=== PATIENT | male | born 1945 | race Caucasian/White ===

== ENCOUNTER 2019-05-29 17:44 | Inpatient (IN) | payer MEDICARE, MEDICAID ==
[2019-05-29] MEDS ORDERED: ASPIRIN 81 MG TABLET, CHEWABLE PO ONE (17:53)
[2019-05-29 18:00] LABS: ABSOLUTE BASOPHILS # (AUTO) 0.1 10^3/uL (0.0-0.2); ABSOLUTE EOSINOPHILS # (AUTO) 0.3 10^3/uL (0.0-0.6); ABSOLUTE MONOCYTES (AUTO) 0.7 10^3/uL (0.1-1.4); ABSOLUTE NEUT (AUTO) 9.9 10^3/uL (1.7-8.2); BASOPHILS % (AUTO) 0.6 % (0-2); EOSINOPHILS % (AUTO) 2.4 % (0-6); HEMATOCRIT 42.5 % (37.9-51.0); HEMOGLOBIN 14.2 g/dL (13.5-17.0); LYMPHOCYTES % (AUTO) 15.1 % (13-45); MEAN CORPUSCULAR HEMOGLOBIN 30.6 pg (27.0-33.4); MEAN CORPUSCULAR HGB CONC 33.5 g/dL (32.0-36.0); MEAN CORPUSCULAR VOLUME 92 fl (80-97); MONOCYTES % (AUTO) 5.7 % (3-13); PLATELET COUNT 205 10^3/uL (150-450); RED BLOOD COUNT 4.64 10^6/uL (4.35-5.55); RED CELL DISTRIBUTION WIDTH 14.8 % (11.5-14.0); SEGMENTED NEUTROPHILS % (AUTO) 76.2 % (42-78); TOTAL CELLS COUNTED % (AUTO) 100 %
[2019-05-29] MEDS ORDERED: NORMAL SALINE 1000 ML 1,000 ML IV ONE ×2 (18:09→21:09)
[2019-05-29 18:10] LABS: INTERNATIONAL RATION (INR) 1.05; PROTHROMBIN TIME 13.7 SEC (11.4-15.4)
[2019-05-29 18:17] LABS: ALANINE AMINOTRANSFERASE 14 U/L (21-72); ALKALINE PHOSPHATASE 141 U/L (38-126); ANION GAP 10 (5-19); ASPARTATE AMINO TRANSFERASE 17 U/L (17-59); BILIRUBIN,DIRECT 0.2 mg/dL (0.0-0.4); BILIRUBIN,TOTAL 1.1 mg/dL (0.2-1.3); BLOOD UREA NITROGEN 14 mg/dL (7-20); CALCIUM 9.2 mg/dL (8.4-10.2); CARBON DIOXIDE 25 mmol/L (22-30); CHLORIDE 105 mmol/L (98-107); CREATINE KINASE 29 U/L (55-170); GLUCOSE 111 mg/dL (75-110); POTASSIUM 4.1 mmol/L (3.6-5.0); SODIUM 139.8 mmol/L (137-145); TOTAL PROTEIN 7.6 g/dL (6.3-8.2)
--- NOTE | 2019-05-29 18:27 | RADIOLOGY REPORT (SQ) ---
EXAM DESCRIPTION: CHEST SINGLE VIEW COMPLETED DATE/TIME: 05/29/2019 6:03 pm REASON FOR STUDY: syncope COMPARISON: None. EXAM PARAMETERS: NUMBER OF VIEWS: One view. TECHNIQUE: Single frontal radiographic view of the chest acquired. RADIATION DOSE: NA LIMITATIONS: None. FINDINGS: LUNGS AND PLEURA: No pneumothorax. No consolidation or pleural effusion. Emphysema and le ft basilar scarring. MEDIASTINUM AND HILAR STRUCTURES: Age-appropriate. HEART AND VASCULAR STRUCTURES: Heart normal in size. BONES: No acute findings. HARDWARE: None in the chest. OTHER: No other significant finding. IMPRESSION: No consolidation or pleural effusion. Emphysema and left basilar scarring. TECHNICAL DOCUMENTATION: JOB ID: [id number] [place]-72 2010 [employer]- All Rights Reserved Reading location - IP/workstation name: [email or web address]
[2019-05-29 18:29] LABS: CREATINE KINASE MB 0.58 ng/mL (<4.55); TROPONIN I < 0.012 ng/mL
[2019-05-29 18:50] LABS: FREE T3 3.42 pg/mL (2.77-5.27); FREE T4 (FREE THYROXINE) 1.1 ng/dL (0.78-2.19)
--- NOTE | 2019-05-29 18:55 | RADIOLOGY REPORT (SQ) ---
EXAM DESCRIPTION: CT HEAD WITHOUT COMPLETED DATE/TIME: 05/29/2019 6:37 pm REASON FOR STUDY: fall COMPARISON: None. TECHNIQUE: Axial images acquired through the brain without intravenous contrast. Images reviewed wi th bone, brain and subdural windows. Additional sagittal and coronal reconstructions were generated. Images stored on PACS. All CT scanners at this facility use dose modulation, iterative reconstruction, and/or weight based d osing when appropriate to reduce radiation dose to as low as reasonably achievable (ALARA). [facility]: Dose Right [facility]: CareDose [facility]: Dose Right [facility]: Teradose 4D [facility]: Smart [employer] RADIATION DOSE: CT Rad equipment meets quality standard of care and radiation dose reduction techniq ues were employed. CTDIvol: 53.2 mGy. DLP: 1097 mGy-cm. mGy. LIMITATIONS: None. FINDINGS: VENTRICLES: Prominent ventricles secondary to involutional atrophy. No hemorrhage. CEREBRUM: No masses. No hemorrhage. No midline shift. No evidence for acute infarction. Normal gra y/white matter differentiation. No areas of low density in the white matter. CEREBELLUM: No masses. No hemorrhage. No alteration of density. No evidence for acute infarction. EXTRAAXIAL SPACES: 8 mm lentiform shaped hyperdense focus at the right frontal convexity (axial image 28). ORBITS AND GLOBE: No intra- or extraconal masses. Normal contour of globe without masses. CALVARIUM: No fracture. PARANASAL SINUSES: Air-fluid level and bubbly opacities within the right maxillary and left sphenoid sinuses. SOFT TISSUES: No mass or hematoma. OTHER: No other significant finding. IMPRESSION: POSSIBLE SMALL 8 MM FOCUS OF RIGHT FRONTAL CONVEXITY EXTRA-AXIAL HEMORRHAGE. NO CALVARI AL FRACTURE OR OTHER ACUTE INTRA CRANIAL FINDINGS. ACUTE RIGHT MAXILLARY AND LEFT SPHENOID SINUSITIS. COMMENT: Quality ID # [id number]: Final reports with documentation of one or more dose reduction techniques (e.g., Automated exposure control, adjustment of the mA and/or kV according to patient size, use of iterative reconstruction technique) TECHNICAL DOCUMENTATION: JOB ID: [id number]- All Rights Reserved Reading location - IP/workstation name: [email or web address]
--- NOTE | 2019-05-29 18:58 | RADIOLOGY REPORT (SQ) ---
EXAM DESCRIPTION: CT CERVICAL SPINE WITHOUT COMPLETED DATE/TIME: 05/29/2019 6:36 pm REASON FOR STUDY: fall COMPARISON: None. TECHNIQUE: Axial images acquired through the cervical spine without intravenous contrast. Images re viewed with lung, soft tissue and bone windows. Reconstructed coronal and sagittal MPR images review ed. Images stored on PACS. All CT scanners at this facility use dose modulation, iterative reconstruction, and/or weight based d osing when appropriate to reduce radiation dose to as low as reasonably achievable (ALARA). [facility]: Dose Right [facility]: CareDose [facility]: Dose Right [facility]: Teradose 4D [facility]: [employer] RADIATION DOSE: CT Rad equipment meets quality standard of care and radiation dose reduction techniq ues were employed. CTDIvol: 9.8 mGy. DLP: 172 mGy-cm. mGy. LIMITATIONS: None. FINDINGS: ALIGNMENT: Anatomic. MINERALIZATION: Normal. VERTEBRAL BODIES: No fractures or dislocation. DISCS: Multilevel disc space narrowing with osteophytes. FACETS, LATERAL MASSES, POSTERIOR ELEMENTS: Facet arthropathy. No fractures. No dislocation. No ac barrow findings. HARDWARE: Anterior plate and screw fixation from C4 through C6, intact. VISUALIZED RIBS: No fractures. LUNG APICES AND SOFT TISSUES: No significant or acute findings. OTHER: No other significant finding. IMPRESSION: CHRONIC DEGENERATIVE CHANGES. NO ACUTE FINDINGS. TECHNICAL DOCUMENTATION: JOB ID: [id number] [place]-72 Quality ID # [id number]: Final reports with documentation of one or more dose reduction techniques (e.g., Au tomated exposure control, adjustment of the mA and/or kV according to patient size, use of iterative reconstruction technique) 2010 [employer]- All Rights Reserved Reading location - IP/workstation name: [email or web address]
[2019-05-29 19:04] LABS: THYROID STIMULATING HORMONE 5.86 uIU/mL (0.47-4.68)
[2019-05-29] MEDS ORDERED: DILTIAZEM HCL/D5W 125 MG/125 ML RTUINJ IV PRN (19:44)
[2019-05-29] MEDS ORDERED: DILTIAZEM HCL INJ 25 MG/5 ML VIAL IV ONE (19:44)
[2019-05-29] MEDS ORDERED: MAG HYDROX/AL HYDROX/SIMETH SUSP 30 ML UDCUP PO PRN (20:54)
[2019-05-29] MEDS ORDERED: ACETAMINOPHEN 325 MG TABLET PO PRN (20:54)
[2019-05-29] MEDS ORDERED: IPRATROPIUM/ALBUTEROL 0.5-2.5 MG/3 ML AMPUL NEB PRN (20:54)
--- NOTE | 2019-05-29 20:54 | ER Document Report ---
ED General - General Chief Complaint: Syncope Stated Complaint: SYNCOPE Time Seen by Provider: 05/29/19 17:52 Mode of Arrival: Medic Information source: Patient, Emergency Med Personnel Notes: 73-year-old male with a history of dementia, COPD, sinus bradycardia presented via EMS from [facility] after a near syncopal event. Patient states that he was walking with his walker when he felt dizzy and was able to lower himself to the floor. He denies any loss of consciousness. He states that he did not hit his head and he remembers the entire event. Patient has no physical complaints, a GCS of 15 and no obvious signs of trauma. Patient's only medication is aspirin. Upon arrival patient was found to be in A. fib with RVR with a heart rate of 150. - HPI Onset: Just prior to arrival Onset/Duration: Sudden Quality of pain: No pain Severity: None Pain Level: Denies Associated symptoms: None. denies: Chest pain, Headache, Leg swelling, Nausea, Vomiting, Shortness of breath, Weakness Exacerbated by: Denies Relieved by: Denies Similar symptoms previously: No Recently seen / treated by doctor: No - Related Data Allergies/Adverse Reactions: No Known Allergies Allergy (Verified 05/29/19 18:16) Past Medical History - General Information source: Outside Facility Records - Social History Smoking Status: Current Every Day Smoker Cigarette use (# per day): Yes - 10 Smoking Education Provided: Yes - smoking cessation counseling was provided for 4 minutes at the bedside Frequency of alcohol use: None Drug Abuse: None Lives with: Shelter Family History: Reviewed & Not Pertinent Patient has suicidal ideation: No Patient has homicidal ideation: No Pulmonary Medical History: Reports: Hx COPD Renal/ Medical History: Denies: Hx Peritoneal Dialysis Review of Systems - Review of Systems Notes: REVIEW OF SYSTEMS: CONSTITUTIONAL : Denies fever, chills, or sweats. Denies recent illness. Denies weight loss, recent hospitalizations. EENT: Denies visual changes, eye pain. Denies sore throat, oral lesions, difficulty swallowing. CARDIOVASCULAR: Denies chest pain. Denies palpitations. Denies lower extremity edema. RESPIRATORY: Denies cough. Denies shortness of breath, wheezing. GASTROINTESTINAL: Denies abdominal pain or distention. Denies nausea, vomiting, or diarrhea. Denies blood in vomitus, stools, or per rectum. Denies black, tarry stools. Denies constipation. GENITOURINARY: Denies difficulty urinating, painful urination, frequency, blood in urine, testicular pain or penile discharge. MUSCULOSKELETAL: Denies back or neck pain or stiffness. Denies joint pain or swelling. SKIN: Denies rash, lesions or sores. HEMATOLOGIC : Denies easy bruising or bleeding. LYMPHATIC: Denies swollen glands. NEUROLOGICAL: Denies confusion or altered mental status. Denies loss of consciousness. Denies dizziness or lightheadedness. Denies headache. Denies weakness or paralysis. Denies problems difficulty with ambulation, slurred speech. Denies sensory loss, numbness, or tingling. Denies seizures. PSYCHIATRIC: Denies anxiety or stress. Denies depression, suicidal ideation, or Physical Exam - Vital signs Vitals: Resp Pulse Ox 21 H 96 05/29/19 17:51 05/29/19 17:51 - Notes Notes: PHYSICAL EXAMINATION: GENERAL: Well-appearing, well-nourished and in no acute distress. GCS 15 HEAD: Atraumatic, normocephalic. EYES: Pupils equal round and reactive to light, extraocular movements intact, sclera anicteric, conjunctiva are normal. ENT: Nares patent, oropharynx clear without exudates. Moist mucous membranes. No hemanotympanum . No blood in nares. No dental fracture NECK: Normal range of motion, supple without lymphadenopathy. Trachea midline LUNGS: Breath sounds clear to auscultation bilaterally and equal. No wheezes rales or rhonchi. HEART: Tachycardic, irregular rhythm. pulses intact all throughout. ABDOMEN: Soft, nontender, nondistended abdomen. No guarding, no rebound. No masses appreciated. Musculoskeletal: Normal range of motion, no pitting or edema. No cyanosis. Hip non tender, stable. NEUROLOGICAL: Cranial nerves grossly intact. Normal speech, normal gait. Normal sensory, motor, and reflex exams. PSYCH: Normal mood, normal affect. SKIN: Warm, No active bleeding Course - Re-evaluation Re-evalutation: Laboratory 05/29/19 05/29/19 05/29/19 17:51 17:51 17:51 WBC 13.0 H RBC 4.64 Hgb 14.2 Hct 42.5 MCV 92 MCH 30.6 MCHC 33.5 RDW 14.8 H Plt Count 205 Seg Neutrophils % 76.2 Lymphocytes % 15.1 Monocytes % 5.7 Eosinophils % 2.4 Basophils % 0.6 Absolute Neutrophils 9.9 H Absolute Lymphocytes 2.0 Absolute Monocytes 0.7 Absolute Eosinophils 0.3 Absolute Basophils 0.1 PT 13.7 INR 1.05 Sodium 139.8 Potassium 4.1 Chloride 105 Carbon Dioxide 25 Anion Gap 10 BUN 14 Creatinine 0.67 Est GFR ( Amer) > 60 Est GFR (Non-Af Amer) > 60 Glucose 111 H Calcium 9.2 Magnesium Total Bilirubin 1.1 Direct Bilirubin 0.2 Neonat Total Bilirubin Not Reportable Neonat Direct Bilirubin Not Reportable Neonat Indirect Bili Not Reportable AST 17 ALT 14 L Alkaline Phosphatase 141 H Creatine Kinase 29 L CK-MB (CK-2) Troponin I NT-Pro-B Natriuret Pep Total Protein 7.6 Albumin 4.0 TSH Free T4 Free T3 pg/mL 05/29/19 05/29/19 05/29/19 17:51 17:51 17:51 WBC RBC Hgb Hct MCV MCH MCHC RDW Plt Count Seg Neutrophils % Lymphocytes % Monocytes % Eosinophils % Basophils % Absolute Neutrophils Absolute Lymphocytes Absolute Monocytes Absolute Eosinophils Absolute Basophils PT INR Sodium Potassium Chloride Carbon Dioxide Anion Gap BUN Creatinine Est GFR ( Amer) Est GFR (Non-Af Amer) Glucose Calcium Magnesium 1.9 Total Bilirubin Direct Bilirubin Neonat Total Bilirubin Neonat Direct Bilirubin Neonat Indirect Bili AST ALT Alkaline Phosphatase Creatine Kinase CK-MB (CK-2) 0.58 Troponin I < 0.012 NT-Pro-B Natriuret Pep 395 Total Protein Albumin TSH Free T4 Free T3 pg/mL 05/29/19 17:51 WBC RBC Hgb Hct MCV MCH MCHC RDW Plt Count Seg Neutrophils % Lymphocytes % Monocytes % Eosinophils % Basophils % Absolute Neutrophils Absolute Lymphocytes Absolute Monocytes Absolute Eosinophils Absolute Basophils PT INR Sodium Potassium Chloride Carbon Dioxide Anion Gap BUN Creatinine Est GFR ( Amer) Est GFR (Non-Af Amer) Glucose Calcium Magnesium Total Bilirubin Direct Bilirubin Neonat Total Bilirubin Neonat Direct Bilirubin Neonat Indirect Bili AST ALT Alkaline Phosphatase Creatine Kinase CK-MB (CK-2) Troponin I NT-Pro-B Natriuret Pep Total Protein Albumin TSH 5.86 H Free T4 1.10 Free T3 pg/mL 3.42 Chest X-Ray 05/29/19 17:54 IMPRESSION: No consolidation or pleural effusion. Emphysema and left basilar scarring. Cervical Spine CT 05/29/19 18:10 IMPRESSION: CHRONIC DEGENERATIVE CHANGES. NO ACUTE FINDINGS. Head CT 05/29/19 18:10 IMPRESSION: POSSIBLE SMALL 8 MM FOCUS OF RIGHT FRONTAL CONVEXITY EXTRA-AXIAL HEMORRHAGE. NO CALVARIAL FRACTURE OR OTHER ACUTE INTRA CRANIAL FINDINGS. ACUTE RIGHT MAXILLARY AND LEFT SPHENOID SINUSITIS. Temp Pulse Resp BP Pulse Ox 97.1 F 20 142/62 H 96 05/29/19 17:53 05/29/19 20:51 05/29/19 20:51 05/29/19 20:51 73-year-old male with a history of dementia, COPD, sinus bradycardia presented via EMS from [facility] after a near syncopal event. Patient states that he was walking with his walker when he felt dizzy and was able to lower himself to the floor. He denies any loss of consciousness. He states that he did not hit his head. Patient has no physical complaints, a GCS of 15 and no obvious signs of trauma. Patient's only medication is aspirin. Upon arrival patient was found to be in A. fib with RVR with a heart rate of 150. Patient did receive IV fluids and a 15 mg bolus of Cardizem. Patient current heart rate is 58. No significant laboratory findings. 05/29/19 20:57 I did call [facility] radiology and spoke to to request a re-review of the patient's head CT that was initially read as a possible extra-axial hemorrhage because the patient has no evidence of head trauma and is not antic oagulated and states that he has not hit his head. He did review the films with me and stated that he believes this is purely artifact and has no suspicion that this is a bleed. Dr. Sales was contacted for admission and has accepted the patient to telemetry. - Vital Signs Vital signs: Temp Pulse Resp BP Pulse Ox 97.1 F 20 142/62 H 96 05/29/19 17:53 05/29/19 20:51 05/29/19 20:51 05/29/19 20:51 - Laboratory Result Diagrams: 05/29/19 17:51 05/29/19 17:51 Laboratory results interpreted by me: 05/29/19 05/29/19 05/29/19 17:51 17:51 17:51 WBC 13.0 H RDW 14.8 H Absolute Neutrophils 9.9 H Glucose 111 H ALT 14 L Alkaline Phosphatase 141 H Creatine Kinase 29 L TSH 5.86 H - Diagnostic Test Radiology reviewed: Image reviewed, Reports reviewed - EKG Interpretation by Me Rate: Tachycardia Rhythm: A.Fib When compared to previous EKG there are: Previous EKG unavailable Discharge - Discharge Clinical Impression: Near syncope, New onset atrial fibrillation, Atrial fibrillation with RVR COPD (chronic obstructive pulmonary disease) Qualifiers: COPD type: unspecified COPD Qualified Code(s): J44.9 - Chronic obstructive pulmonary disease, unspecified Hard of hearing Qualifiers: Hearing loss type: unspecified Laterality: bilateral Qualified Code(s): H91.93 - Unspecified hearing loss, bilateral Condition: Good Disposition: ADMITTED INPATIENT Admitting Provider: Henrry (Hospitalist) Unit Admitted: Telemetry
[2019-05-29] MEDS ORDERED: DILTIAZEM HCL 60 MG TABLET PO SCH (22:00)
[2019-05-29] MEDS: HEPARIN SOD (PORCINE) 5,000 UNIT/ML 1 ML SYRINGE SUBCUT SCH (23:46)
--- NOTE | 2019-05-29 23:50 | EKG REPORT ---
SEVERITY:- ABNORMAL ECG - SINUS RHYTHM BORDERLINE R WAVE PROGRESSION, ANTERIOR LEADS CONSIDER ANTEROSEPTAL INFARCT, OLD : Confirmed by: Carolyn Barba 29-May-2019 23:49:30
--- NOTE | 2019-05-29 23:50 | EKG REPORT ---
SEVERITY:- ABNORMAL ECG - ATRIAL FLUTTER CONSIDER LEFT VENTRICULAR HYPERTROPHY : Confirmed by: Carolyn Barba 29-May-2019 23:50:20
[2019-05-30 03:15] LABS: ABSOLUTE BASOPHILS # (AUTO) 0.1 10^3/uL (0.0-0.2); ABSOLUTE EOSINOPHILS # (AUTO) 0.1 10^3/uL (0.0-0.6); ABSOLUTE LYMPHOCYTES (AUTO) 1.6 10^3/uL (0.5-4.7); ABSOLUTE MONOCYTES (AUTO) 0.8 10^3/uL (0.1-1.4); ABSOLUTE NEUT (AUTO) 9.9 10^3/uL (1.7-8.2); BASOPHILS % (AUTO) 0.7 % (0-2); EOSINOPHILS % (AUTO) 0.7 % (0-6); HEMATOCRIT 37.8 % (37.9-51.0); HEMOGLOBIN 12.3 g/dL (13.5-17.0); LYMPHOCYTES % (AUTO) 12.7 % (13-45); MEAN CORPUSCULAR HEMOGLOBIN 30.2 pg (27.0-33.4); MEAN CORPUSCULAR HGB CONC 32.5 g/dL (32.0-36.0); MEAN CORPUSCULAR VOLUME 93 fl (80-97); MONOCYTES % (AUTO) 6.1 % (3-13); PLATELET COUNT 180 10^3/uL (150-450); RED BLOOD COUNT 4.07 10^6/uL (4.35-5.55); RED CELL DISTRIBUTION WIDTH 14.5 % (11.5-14.0); SEGMENTED NEUTROPHILS % (AUTO) 79.8 % (42-78); TOTAL CELLS COUNTED % (AUTO) 100 %; WHITE BLOOD COUNT 12.4 10^3/uL (4.0-10.5)
[2019-05-30 03:35] LABS: ANION GAP 9 (5-19); BLOOD UREA NITROGEN 12 mg/dL (7-20); CALCIUM 8.9 mg/dL (8.4-10.2); CARBON DIOXIDE 25 mmol/L (22-30); CHLORIDE 110 mmol/L (98-107); GLUCOSE 88 mg/dL (75-110); POTASSIUM 4.2 mmol/L (3.6-5.0); SODIUM 143.5 mmol/L (137-145)
--- NOTE | 2019-05-30 04:10 | PDOC H&P ---
History of Present Illness Admission Date/PCP: 05/29/19 20:54 Patient complains of: Lightheadedness History of Present Illness: JOE DIXON is a 73 year old male resident of the [facility], with a past medical history of dementia, COPD, sinus bradycardia and deafness. He presents 1 hour after a near syncopal event occurring while walking with his walker fee ling lightheaded he lowered himself to the ground with palpitations without chest pain nausea vomiting or loss of consciousness in the emergency room is found to be in a flutter with a heart rate in the 150s he receives IV Cardizem x1 resulting in sinus bradycardia and is referred to the hospitalist for admission. Patient is a poor historian he is unaware of recent change of medications and he otherwise feels well. Past Medical History Pulmonary Medical History: Reports: Chronic Obstructive Pulmonary Disease (COPD) Social History Information Source: Patient, [facility] Records Lives with: Long-Term Smoking Status: Current Every Day Smoker - Advance Directive Resuscitation Status: Full Code Family History Family History: Reviewed & Not Pertinent Parental Family History Reviewed: Yes Children Family History Reviewed: Yes Sibling(s) Family History Reviewed.: Yes Medication/Allergy Home Medications: Aspirin [Aspirin 81 mg Chewable Tablet] 81 mg PO DAILY 05/29/19 Allergies/Adverse Reactions: No Known Allergies Allergy (Verified 05/29/19 18:16) Review of Systems Constitutional: ABSENT: chills, fever(s), headache(s), weight gain, weight loss Eyes: ABSENT: visual disturbances Ears: ABSENT: hearing changes Cardiovascular: ABSENT: chest pain, dyspnea on exertion, edema, orthropnea, palpitations Respiratory: ABSENT: cough, hemoptysis Gastrointestinal: ABSENT: abdominal pain, constipation, diarrhea, hematemesis, hematochezia, nausea, vomiting Genitourinary: ABSENT: dysuria, hematuria Musculoskeletal: ABSENT: joint swelling Integumentary: ABSENT: rash, wounds Neurological: ABSENT: abnormal gait, abnormal speech, confusion, dizziness, focal weakness, syncope Psychiatric: ABSENT: anxiety, depression, homidical ideation, suicidal ideation Endocrine: ABSENT: cold intolerance, heat intolerance, polydipsia, polyuria Hematologic/Lymphatic: ABSENT: easy bleeding, easy bruising Physical Exam Vital Signs: Temp Pulse Resp BP Pulse Ox 98.1 F 59 L 16 123/61 98 05/30/19 03:03 05/30/19 03:03 05/30/19 03:03 05/30/19 03:03 05/30/19 03:03 Intake & Output 05/28/19 05/29/19 05/30/19 11:59 11:59 11:59 Intake Total 2000 Output Total 400 Balance 1600 Weight 52.9 kg General appearance: PRESENT: no acute distress, well-developed, well-nourished Head exam: PRESENT: atraumatic, normocephalic Eye exam: PRESENT: conjunctiva pink, EOMI, PERRLA. ABSENT: scleral icterus Ear exam: PRESENT: normal external ear exam Mouth exam: PRESENT: moist, tongue midline Neck exam: ABSENT: carotid bruit, JVD, lymphadenopathy, thyromegaly Respiratory exam: PRESENT: clear to auscultation kristopher. ABSENT: rales, rhonchi, wheezes Cardiovascular exam: PRESENT: RRR. ABSENT: diastolic murmur, rubs, systolic murmur Pulses: PRESENT: normal dorsalis pedis pul Vascular exam: PRESENT: normal capillary refill GI/Abdominal exam: PRESENT: normal bowel sounds, soft. ABSENT: distended, guarding, mass, organolmegaly, rebound, tenderness Rectal exam: PRESENT: deferred Extremities exam: PRESENT: full ROM. ABSENT: calf tenderness, clubbing, pedal edema Neurological exam: PRESENT: alert, awake, oriented to person, oriented to place, oriented to time, oriented to situation, CN II-XII grossly intact. ABSENT: motor sensory deficit Psychiatric exam: PRESENT: appropriate affect, normal mood. ABSENT: homicidal ideation, suicidal ideation Skin exam: PRESENT: dry, intact, warm. ABSENT: cyanosis, rash Results Laboratory Results: 05/30/19 03:09 05/30/19 03:09 05/29/19 05/29/19 05/29/19 17:51 17:51 17:51 WBC 13.0 H RBC 4.64 Hgb 14.2 Hct 42.5 MCV 92 MCH 30.6 MCHC 33.5 RDW 14.8 H Plt Count 205 Seg Neutrophils % 76.2 Lymphocytes % 15.1 Monocytes % 5.7 Eosinophils % 2.4 Basophils % 0.6 Absolute Neutrophils 9.9 H Absolute Lymphocytes 2.0 Absolute Monocytes 0.7 Absolute Eosinophils 0.3 Absolute Basophils 0.1 Sodium 139.8 Potassium 4.1 Chloride 105 Carbon Dioxide 25 Anion Gap 10 BUN 14 Creatinine 0.67 Est GFR ( Amer) > 60 Est GFR (Non-Af Amer) > 60 Glucose 111 H Calcium 9.2 Magnesium 1.9 Total Bilirubin 1.1 AST 17 ALT 14 L Alkaline Phosphatase 141 H Total Protein 7.6 Albumin 4.0 TSH Free T4 Free T3 pg/mL 05/29/19 05/30/19 05/30/19 17:51 03:09 03:09 WBC 12.4 H RBC 4.07 L Hgb 12.3 L Hct 37.8 L MCV 93 MCH 30.2 MCHC 32.5 RDW 14.5 H Plt Count 180 Seg Neutrophils % 79.8 H Lymphocytes % 12.7 L Monocytes % 6.1 Eosinophils % 0.7 Basophils % 0.7 Absolute Neutrophils 9.9 H Absolute Lymphocytes 1.6 Absolute Monocytes 0.8 Absolute Eosinophils 0.1 Absolute Basophils 0.1 Sodium 143.5 Potassium 4.2 Chloride 110 H Carbon Dioxide 25 Anion Gap 9 BUN 12 Creatinine 0.64 Est GFR ( Amer) > 60 Est GFR (Non-Af Amer) > 60 Glucose 88 Calcium 8.9 Magnesium Total Bilirubin AST ALT Alkaline Phosphatase Total Protein Albumin TSH 5.86 H Free T4 1.10 Free T3 pg/mL 3.42 05/29/19 05/29/19 05/29/19 17:51 17:51 17:51 Creatine Kinase 29 L CK-MB (CK-2) 0.58 Troponin I < 0.012 NT-Pro-B Natriuret Pep 395 05/29/19 05/30/19 20:45 03:09 Creatine Kinase CK-MB (CK-2) Troponin I < 0.012 0.083 NT-Pro-B Natriuret Pep Impressions: Chest X-Ray 05/29/19 17:54 IMPRESSION: No consolidation or pleural effusion. Emphysema and left basilar scarring. Cervical Spine CT 05/29/19 18:10 IMPRESSION: CHRONIC DEGENERATIVE CHANGES. NO ACUTE FINDINGS. Head CT 05/29/19 18:10 IMPRESSION: POSSIBLE SMALL 8 MM FOCUS OF RIGHT FRONTAL CONVEXITY EXTRA-AXIAL HEMORRHAGE. NO CALVARIAL FRACTURE OR OTHER ACUTE INTRA CRANIAL FINDINGS. ACUTE RIGHT MAXILLARY AND LEFT SPHENOID SINUSITIS. Assessment and Plan - Diagnosis (1) Atrial fibrillation with RVR Is this a current diagnosis for this admission?: Yes Plan: Telemetry admission. Not requiring rate limiting agent as he is in sinus bradycardia. Follow-up orthostatic blood pressures, 2D echo, TSH and cardiac enzymes (2) Near syncope Is this a current diagnosis for this admission?: Yes Plan: Secondary to #1, follow-up orthostatic blood pressures (3) Hard of hearing Qualifiers: Hearing loss type: unspecified Laterality: bilateral Qualified Code(s): H91.93 - Unspecified hearing loss, bilateral Is this a current diagnosis for this admission?: Yes Plan: Supportive care - Time Time Spent with patient: 25-34 minutes - Inpatient Certification Medical Necessity: Need Close Monitoring Due to Risk of Patient Decompensation
[2019-05-30] MEDS: HEPARIN SOD (PORCINE) 5,000 UNIT/ML 1 ML SYRINGE SUBCUT SCH ×3 (06:02→22:46)
[2019-05-30] MEDS: DOCUSATE SODIUM 100 MG CAPSULE PO SCH ×2 (09:20→17:21)
[2019-05-30] MEDS: ASPIRIN 81 MG TABLET, CHEWABLE PO SCH (09:20)
--- NOTE | 2019-05-30 15:27 | PDOC PROGRESS REPORT ---
Subjective Progress Note for:: 05/30/19 Subjective:: This is a 73 yr old male from [facility]) with a PMH of dementia, COPD, and hearing problem (not able to afford hearing aids) who was brought in due to near syncopal episode and lightheadedness. In the ER, patient was noted to be in atrial flutter with a heart rate in the 150s. He was given a bolus of IV Cardizem in went into sinus bradycardia. Upon encounter, patient is comfortable. He denies chest pain or shortness of breath. He has extreme hearing difficulty and communication is done through writing. Patient complains of feeling dizzy every time he gets up and right that has been going on for a week or so. He still gets dizziness this morning when he tried to stand up. Blood pressures this morning were orthostatic. brand planner shows sinus bradycardia with a heart rate of 46. Reason For Visit: PRESYNCOPE AFIB Physical Exam Vital Signs: Temp Pulse Resp BP Pulse Ox 98.1 F 53 L 16 117/47 L 99 05/30/19 12:35 05/30/19 12:35 05/30/19 12:35 05/30/19 12:35 05/30/19 12:35 Intake & Output 05/29/19 05/30/19 05/31/19 06:59 06:59 06:59 Intake Total 2000 Output Total 700 Balance 1300 Weight 116 lb 13.52 oz General appearance: PRESENT: no acute distress, well-developed, well-nourished Head exam: PRESENT: atraumatic, normocephalic Eye exam: PRESENT: conjunctiva pink, EOMI, PERRLA. ABSENT: scleral icterus Ear exam: PRESENT: normal external ear exam Mouth exam: PRESENT: moist, tongue midline Neck exam: ABSENT: carotid bruit, JVD, lymphadenopathy, thyromegaly Respiratory exam: PRESENT: clear to auscultation kristopher. ABSENT: rales, rhonchi, wheezes Cardiovascular exam: PRESENT: bradycardia, RRR. ABSENT: diastolic murmur, rubs, systolic murmur Pulses: PRESENT: normal dorsalis pedis pul GI/Abdominal exam: PRESENT: normal bowel sounds, soft. ABSENT: distended, guarding, mass, organolmegaly, rebound, tenderness Rectal exam: PRESENT: deferred Extremities exam: PRESENT: full ROM. ABSENT: calf tenderness, clubbing, pedal edema Neurological exam: PRESENT: alert, awake, oriented to person, oriented to place, oriented to time, oriented to situation, CN II-XII grossly intact. ABSENT: motor sensory deficit Results Laboratory Results: 05/30/19 03:09 05/30/19 03:09 05/29/19 05/29/19 05/29/19 17:51 17:51 17:51 WBC 13.0 H RBC 4.64 Hgb 14.2 Hct 42.5 MCV 92 MCH 30.6 MCHC 33.5 RDW 14.8 H Plt Count 205 Seg Neutrophils % 76.2 Lymphocytes % 15.1 Monocytes % 5.7 Eosinophils % 2.4 Basophils % 0.6 Absolute Neutrophils 9.9 H Absolute Lymphocytes 2.0 Absolute Monocytes 0.7 Absolute Eosinophils 0.3 Absolute Basophils 0.1 Sodium 139.8 Potassium 4.1 Chloride 105 Carbon Dioxide 25 Anion Gap 10 BUN 14 Creatinine 0.67 Est GFR ( Amer) > 60 Est GFR (Non-Af Amer) > 60 Glucose 111 H Calcium 9.2 Magnesium 1.9 Total Bilirubin 1.1 AST 17 ALT 14 L Alkaline Phosphatase 141 H Total Protein 7.6 Albumin 4.0 TSH Free T4 Free T3 pg/mL 05/29/19 05/30/19 05/30/19 17:51 03:09 03:09 WBC 12.4 H RBC 4.07 L Hgb 12.3 L Hct 37.8 L MCV 93 MCH 30.2 MCHC 32.5 RDW 14.5 H Plt Count 180 Seg Neutrophils % 79.8 H Lymphocytes % 12.7 L Monocytes % 6.1 Eosinophils % 0.7 Basophils % 0.7 Absolute Neutrophils 9.9 H Absolute Lymphocytes 1.6 Absolute Monocytes 0.8 Absolute Eosinophils 0.1 Absolute Basophils 0.1 Sodium 143.5 Potassium 4.2 Chloride 110 H Carbon Dioxide 25 Anion Gap 9 BUN 12 Creatinine 0.64 Est GFR ( Amer) > 60 Est GFR (Non-Af Amer) > 60 Glucose 88 Calcium 8.9 Magnesium Total Bilirubin AST ALT Alkaline Phosphatase Total Protein Albumin TSH 5.86 H Free T4 1.10 Free T3 pg/mL 3.42 05/29/19 05/29/19 05/29/19 17:51 17:51 17:51 Creatine Kinase 29 L CK-MB (CK-2) 0.58 Troponin I < 0.012 NT-Pro-B Natriuret Pep 395 05/29/19 05/30/19 05/30/19 20:45 03:09 09:03 Creatine Kinase CK-MB (CK-2) Troponin I < 0.012 0.083 0.074 NT-Pro-B Natriuret Pep Impressions: Chest X-Ray 05/29/19 17:54 IMPRESSION: No consolidation or pleural effusion. Emphysema and left basilar scarring. Cervical Spine CT 05/29/19 18:10 IMPRESSION: CHRONIC DEGENERATIVE CHANGES. NO ACUTE FINDINGS. Head CT 05/29/19 18:10 IMPRESSION: POSSIBLE SMALL 8 MM FOCUS OF RIGHT FRONTAL CONVEXITY EXTRA-AXIAL HEMORRHAGE. NO CALVARIAL FRACTURE OR OTHER ACUTE INTRA CRANIAL FINDINGS. ACUTE RIGHT MAXILLARY AND LEFT SPHENOID SINUSITIS. Assessment and Plan - Diagnosis (1) Near syncope Is this a current diagnosis for this admission?: Yes Plan: Likely related to AFlutter initially. He is still having dizziness and is noted to be orthostatic. Will start IV fluids. (2) Orthostatic dizziness Is this a current diagnosis for this admission?: Yes Plan: As per number 1. (3) Atrial flutter Is this a current diagnosis for this admission?: Yes Plan: New onset. CHADVASC score of 1. Currently in sinus bradycardia, HR in the 46. Patient reportedly went into sinus marlon after given IV cardizem in the ER. (4) COPD (chronic obstructive pulmonary disease) Qualifiers: COPD type: unspecified COPD Qualified Code(s): J44.9 - Chronic obstructive pulmonary disease, unspecified Is this a current diagnosis for this admission?: Yes Plan: Not in exacerbation. Breathing treatments as needed. (5) Hard of hearing Qualifiers: Hearing loss type: unspecified Laterality: bilateral Qualified Code(s): H91.93 - Unspecified hearing loss, bilateral Is this a current diagnosis for this admission?: Yes Plan: Patient is unable to afford hearing aids. - Time Time Spent with patient: 25-34 minutes
--- NOTE | 2019-05-30 17:07 | RADIOLOGY REPORT (SQ) ---
EXAM DESCRIPTION: CAROTID DOPPLER COMPLETED DATE/TIME: 05/30/2019 10:57 am REASON FOR STUDY: presyncope COMPARISON: None. TECHNIQUE: Grayscale ultrasound, Doppler velocity and spectra, and color Doppler images acquired of the extra-cranial carotid and vertebral arteries. Images stored on PACS. LIMITATIONS: None. FINDINGS: RIGHT CAROTID CCA Velocities: Within normal limits. Right common carotid artery peak systolic velocity 0.97 m/sec ICA Velocities Peak systolic 0.83 m/s. End diastolic 0.13 m/s. Proximal ICA/CCA peak systolic ratio normal. Spectra normal. No significant plaque. LEFT CAROTID CCA Velocities: Within normal limits. Left common carotid artery peak systolic velocity 0.93 m/sec ICA Velocities Peak systolic 0.68 m/s. End diastolic 0.11 m/s. Proximal ICA/CCA peak systolic ratio normal. Spectra normal. Mild mixed calcific and noncalcific plaque. VERTEBRAL ARTERIES: Antegrade flow. Normal waveforms. SUBCLAVIAN ARTERIES: Not evaluated OTHER: No other significant finding. IMPRESSION: NO HEMODYNAMICALLY SIGNIFICANT STENOSIS. COMMENT: Quality ID #[id number]: Velocity criteria are extrapolated from the diameter data as defined by t he Society of Radiologists in Ultrasound Consensus Conference. Radiology 2003: 229; 340-346. TECHNICAL DOCUMENTATION: JOB ID: [id number] [employer]- All Rights Reserved Reading location - IP/workstation name: [email or web address]
[2019-05-31] MEDS: HEPARIN SOD (PORCINE) 5,000 UNIT/ML 1 ML SYRINGE SUBCUT SCH ×3 (05:57→21:45)
[2019-05-31] MEDS: ASPIRIN 81 MG TABLET, CHEWABLE PO SCH (09:11)
[2019-05-31] MEDS: DOCUSATE SODIUM 100 MG CAPSULE PO SCH ×2 (09:11→18:00)
[2019-05-31] MEDS ORDERED: DIGOXIN INJ 0.5 MG/2 ML AMPULE IV ONE ×2 (12:42→13:00)
[2019-05-31] MEDS ORDERED: NORMAL SALINE 500 ML IV ONE (13:59)
[2019-05-31] MEDS ORDERED: METOPROLOL TARTRATE PF/INJ 5 MG/5 ML SDV IV ONE (15:00)
--- NOTE | 2019-05-31 15:13 | PDOC PROGRESS REPORT ---
Subjective Progress Note for:: 05/31/19 Subjective:: Patient continues to have asymptomatic episodes of atrial fibrillation with a heart rate in the 115-135 range. He was given digoxin IV 0.25 without response. Started on oral 0.125 digoxin daily tomorrow. He was given 1/2 L of normal saline. He was then given 5 mg IV Lopressor. He was started on 30 mg every 8 hours Cardizem. Patient remains pleasantly confused. Which is reported as his baseline. Reason For Visit: PRESYNCOPE AFIB Physical Exam Vital Signs: Temp Pulse Resp BP Pulse Ox 98.0 F 124 H 16 148/64 H 95 05/31/19 08:50 05/31/19 14:00 05/31/19 12:47 05/31/19 08:50 05/31/19 12:47 Intake & Output 05/30/19 05/31/19 06/01/19 06:59 06:59 06:59 Intake Total 2000 820 120 Output Total 700 2135 275 Balance 1300 -1315 -155 Weight 53 kg 51.5 kg General appearance: PRESENT: no acute distress, hard of hearing, thin Head exam: PRESENT: atraumatic Eye exam: PRESENT: conjunctiva pink, EOMI, PERRLA. ABSENT: scleral icterus Ear exam: PRESENT: normal external ear exam Mouth exam: PRESENT: neck supple, tongue midline Neck exam: ABSENT: carotid bruit, JVD, lymphadenopathy, thyromegaly Respiratory exam: PRESENT: clear to auscultation kristopher. ABSENT: rales, rhonchi, wheezes Cardiovascular exam: PRESENT: irregular rhythm, tachycardia GI/Abdominal exam: PRESENT: normal bowel sounds, soft. ABSENT: distended, guarding, mass, organolmegaly, rebound, tenderness Rectal exam: PRESENT: deferred Extremities exam: PRESENT: other - No edema bilateral lower extremities Musculoskeletal exam: PRESENT: normal inspection Neurological exam: PRESENT: alert, altered, awake, oriented to person, CN II-XII grossly intact Psychiatric exam: PRESENT: appropriate affect, normal mood Focused psych exam: ABSENT: catatonic, delusional, euphoric, flight of ideas, internal stimuli, paranoid, pressured speech, psychomotor agitation, restlessness, other Skin exam: PRESENT: dry Results Laboratory Results: 05/30/19 03:09 05/30/19 03:09 07/06/1005/29/19 05/29/19 17:51 17:51 17:51 Creatine Kinase 29 L CK-MB (CK-2) 0.58 Troponin I < 0.012 NT-Pro-B Natriuret Pep 395 05/29/19 05/30/19 05/30/19 20:45 03:09 09:03 Creatine Kinase CK-MB (CK-2) Troponin I < 0.012 0.083 0.074 NT-Pro-B Natriuret Pep Impressions: Chest X-Ray 05/29/19 17:54 IMPRESSION: No consolidation or pleural effusion. Emphysema and left basilar scarring. Cervical Spine CT 05/29/19 18:10 IMPRESSION: CHRONIC DEGENERATIVE CHANGES. NO ACUTE FINDINGS. Head CT 05/29/19 18:10 IMPRESSION: POSSIBLE SMALL 8 MM FOCUS OF RIGHT FRONTAL CONVEXITY EXTRA-AXIAL HEMORRHAGE. NO CALVARIAL FRACTURE OR OTHER ACUTE INTRA CRANIAL FINDINGS. ACUTE RIGHT MAXILLARY AND LEFT SPHENOID SINUSITIS. Carotid Doppler Study 05/30/19 00:00 IMPRESSION: NO HEMODYNAMICALLY SIGNIFICANT STENOSIS. Assessment and Plan - Diagnosis (1) Atrial fibrillation with RVR Is this a current diagnosis for this admission?: Yes Plan: -Patient is responded to Cardizem in the past. Start 30 mg p.o. every 8 hours -Digoxin 0.125 mg daily starting Thursday. He received today's dose IV 0.25 -Lopressor 5 mg x 1 IV -Chads vas score of 1. Continue aspirin -Patient remains asymptomatic. He does have a history of sinus bradycardia that we have to be conscious of. 1/2L of normal saline given. (2) COPD (chronic obstructive pulmonary disease) Qualifiers: COPD type: unspecified COPD Qualified Code(s): J44.9 - Chronic obstructive pulmonary disease, unspecified Is this a current diagnosis for this admission?: Yes Plan: Stable. Monitor (3) Near syncope Is this a current diagnosis for this admission?: Yes Plan: On admission. Orthostatic hypotension. Monitor. - Time Time Spent with patient: 15-24 minutes Medications reviewed and adjusted accordingly: Yes - Inpatient Certification Based on my medical assessment, after consideration of the patient's comorbidities, presenting symptoms, or acuity I expect that the services needed warrant INPATIENT care.: Yes I certify that my determination is in accordance with my understanding of Medicare's requirements for reasonable and necessary INPATIENT services [42 CFR 412.3e].: Yes Medical Necessity: Need For IV Fluids, Need For Continuous Telemetry Monitoring - Plan Summary Plan Summary: See above.
[2019-05-31] MEDS ORDERED: DILTIAZEM HCL 30 MG TABLET PO ONE (16:00)
[2019-05-31] MEDS: DILTIAZEM HCL 30 MG TABLET PO SCH (21:45)
[2019-05-31] MEDS ORDERED: DILTIAZEM HCL 30 MG TABLET PO SCH (22:00)
[2019-06-01] MEDS: DILTIAZEM HCL 30 MG TABLET PO SCH ×3 (06:22→22:50)
[2019-06-01] MEDS: HEPARIN SOD (PORCINE) 5,000 UNIT/ML 1 ML SYRINGE SUBCUT SCH ×3 (06:23→22:41)
[2019-06-01] MEDS: DIGOXIN 0.125 MG TABLET PO SCH (09:08)
[2019-06-01] MEDS: DOCUSATE SODIUM 100 MG CAPSULE PO SCH ×2 (09:09→17:14)
[2019-06-01] MEDS: ASPIRIN 81 MG TABLET, CHEWABLE PO SCH (14:25)
--- NOTE | 2019-06-01 16:10 | PDOC PROGRESS REPORT ---
Subjective Progress Note for:: 06/01/19 Subjective:: afib/flutter broke after lopressor 5mg yesterday. he is on maintenance dig and 30 of cardizem q8h. Hr has been as low as 38 while sleeping. he remained asymptomatic while awake and sleeping when HR is low. baselines appears to be in 50s. he has no complaints. does admit to some lightheadedness and confusion when in afib/flutter. continues to be pleasant. very BLACKFEET so hard to communicate Reason For Visit: PRESYNCOPE AFIB Physical Exam Vital Signs: Temp Pulse Resp BP Pulse Ox 98.6 F 57 L 18 114/60 94 06/01/19 08:03 06/01/19 14:00 06/01/19 08:03 06/01/19 08:03 06/01/19 08:03 Intake & Output 05/31/19 06/01/19 06/02/19 06:59 06:59 06:59 Intake Total 820 626 577 Output Total 2135 1105 Balance -1315 -479 577 Weight 51.5 kg 48 kg General appearance: PRESENT: no acute distress, cooperative, thin Head exam: PRESENT: atraumatic, normocephalic Ear exam: PRESENT: normal external ear exam Mouth exam: PRESENT: moist, tongue midline Respiratory exam: PRESENT: clear to auscultation kristopher. ABSENT: rales, rhonchi, wheezes Cardiovascular exam: PRESENT: bradycardia, +S1, +S2 GI/Abdominal exam: PRESENT: normal bowel sounds, soft. ABSENT: distended, guarding, mass, organolmegaly, rebound, tenderness Rectal exam: PRESENT: deferred Extremities exam: PRESENT: full ROM. ABSENT: calf tenderness, clubbing, pedal edema Musculoskeletal exam: PRESENT: full ROM Neurological exam: PRESENT: alert, awake, oriented to person, oriented to place, oriented to time, oriented to situation, CN II-XII grossly intact. ABSENT: motor sensory deficit Psychiatric exam: PRESENT: appropriate affect, normal mood. ABSENT: homicidal ideation, suicidal ideation Skin exam: PRESENT: dry, intact, warm. ABSENT: cyanosis, rash Results Laboratory Results: 05/30/19 03:09 05/30/19 03:09 05/29/19 05/29/19 05/29/19 17:51 17:51 17:51 Creatine Kinase 29 L CK-MB (CK-2) 0.58 Troponin I < 0.012 NT-Pro-B Natriuret Pep 395 05/29/19 05/30/19 05/30/19 20:45 03:09 09:03 Creatine Kinase CK-MB (CK-2) Troponin I < 0.012 0.083 0.074 NT-Pro-B Natriuret Pep Impressions: Chest X-Ray 05/29/19 17:54 IMPRESSION: No consolidation or pleural effusion. Emphysema and left basilar scarring. Cervical Spine CT 05/29/19 18:10 IMPRESSION: CHRONIC DEGENERATIVE CHANGES. NO ACUTE FINDINGS. Head CT 05/29/19 18:10 IMPRESSION: POSSIBLE SMALL 8 MM FOCUS OF RIGHT FRONTAL CONVEXITY EXTRA-AXIAL HEMORRHAGE. NO CALVARIAL FRACTURE OR OTHER ACUTE INTRA CRANIAL FINDINGS. ACUTE RIGHT MAXILLARY AND LEFT SPHENOID SINUSITIS. Carotid Doppler Study 05/30/19 00:00 IMPRESSION: NO HEMODYNAMICALLY SIGNIFICANT STENOSIS. Assessment and Plan - Diagnosis (1) Atrial fibrillation with RVR Is this a current diagnosis for this admission?: Yes Plan: monitor to keep out of AFib, and then we can move towards d/c. last episode 05/31 -Digoxin 0.125 mg daily -cardizem 30mg q8h daily. hold if symptomatic. notify provider -Lopressor 5 mg x 1 IV given 05/31 to break afib/flutter alone with 0.25mg iv digoxin -Chads vas score of 1. Continue aspirin -Patient remains asymptomatic. He does have a history of sinus bradycardia that we have to be conscious of. (2) COPD (chronic obstructive pulmonary disease) Qualifiers: COPD type: unspecified COPD Qualified Code(s): J44.9 - Chronic obstructive pulmonary disease, unspecified Is this a current diagnosis for this admission?: Yes Plan: Stable. Monitor (3) Near syncope Is this a current diagnosis for this admission?: Yes Plan: On admission. Orthostatic hypotension. possibly related to afib. no episodes in last 24 hours. Monitor. - Time Time Spent with patient: 15-24 minutes Medications reviewed and adjusted accordingly: Yes Anticipated discharge: Other - [facility] - Inpatient Certification Based on my medical assessment, after consideration of the patient's comorbidities, presenting symptoms, or acuity I expect that the services needed warrant INPATIENT care.: Yes I certify that my determination is in accordance with my understanding of Medicare's requirements for reasonable and necessary INPATIENT services [42 CFR 412.3e].: Yes - Plan Summary Plan Summary: need to get and keep afib/flutter under control. chads vasc score low. conitnue asa. some concern about giving AC because of falls risks even if score was 2+
[2019-06-02 05:46] LABS: ABSOLUTE BASOPHILS # (AUTO) 0.1 10^3/uL (0.0-0.2); ABSOLUTE EOSINOPHILS # (AUTO) 0.4 10^3/uL (0.0-0.6); ABSOLUTE MONOCYTES (AUTO) 0.7 10^3/uL (0.1-1.4); ABSOLUTE NEUT (AUTO) 7.3 10^3/uL (1.7-8.2); BASOPHILS % (AUTO) 0.5 % (0-2); EOSINOPHILS % (AUTO) 4.2 % (0-6); LYMPHOCYTES % (AUTO) 19.3 % (13-45); MEAN CORPUSCULAR HGB CONC 33.3 g/dL (32.0-36.0); MEAN CORPUSCULAR VOLUME 93 fl (80-97); MONOCYTES % (AUTO) 6.8 % (3-13); PLATELET COUNT 170 10^3/uL (150-450); RED BLOOD COUNT 3.87 10^6/uL (4.35-5.55); RED CELL DISTRIBUTION WIDTH 14.7 % (11.5-14.0); SEGMENTED NEUTROPHILS % (AUTO) 69.2 % (42-78); TOTAL CELLS COUNTED % (AUTO) 100 %; WHITE BLOOD COUNT 10.6 10^3/uL (4.0-10.5)
[2019-06-02 06:04] LABS: ALANINE AMINOTRANSFERASE 15 U/L (21-72); ALBUMIN 3.4 g/dL (3.5-5.0); ALKALINE PHOSPHATASE 94 U/L (38-126); ANION GAP 8 (5-19); ASPARTATE AMINO TRANSFERASE 20 U/L (17-59); BILIRUBIN,DIRECT 0.2 mg/dL (0.0-0.4); BILIRUBIN,TOTAL 0.4 mg/dL (0.2-1.3); BLOOD UREA NITROGEN 21 mg/dL (7-20); CALCIUM 8.7 mg/dL (8.4-10.2); CARBON DIOXIDE 27 mmol/L (22-30); CHLORIDE 106 mmol/L (98-107); GLUCOSE 87 mg/dL (75-110); POTASSIUM 4.2 mmol/L (3.6-5.0); SODIUM 141.1 mmol/L (137-145); TOTAL PROTEIN 6.4 g/dL (6.3-8.2)
[2019-06-02] MEDS: DILTIAZEM HCL 30 MG TABLET PO SCH ×3 (06:30→21:28)
[2019-06-02] MEDS: HEPARIN SOD (PORCINE) 5,000 UNIT/ML 1 ML SYRINGE SUBCUT SCH ×3 (06:31→21:29)
[2019-06-02] MEDS: DIGOXIN 0.125 MG TABLET PO SCH (09:15)
[2019-06-02] MEDS: ASPIRIN 81 MG TABLET, CHEWABLE PO SCH (09:15)
[2019-06-02] MEDS: DOCUSATE SODIUM 100 MG CAPSULE PO SCH ×2 (09:16→17:30)
--- NOTE | 2019-06-02 15:43 | PDOC PROGRESS REPORT ---
Subjective Progress Note for:: 06/02/19 Subjective:: patient reports light-headedness when walking to bathroom. he is only able to get cardizem and dig about 1/2 the time because HR is too low. He remains asymptomatic at rest with low HR. Will go into upper 30s and low 40's when sleeping. Reason For Visit: PRESYNCOPE AFIB Physical Exam Vital Signs: Temp Pulse Resp BP Pulse Ox 98.4 F 50 L 18 118/60 95 06/02/19 12:00 06/02/19 14:00 06/02/19 12:00 06/02/19 12:00 06/02/19 12:00 Intake & Output 06/01/19 06/02/19 06/03/19 06:59 06:59 06:59 Intake Total 626 1139 Output Total 1105 825 Balance -479 314 Weight 48 kg 49 kg General appearance: PRESENT: no acute distress, cooperative, hard of hearing, thin Head exam: PRESENT: atraumatic, normocephalic Eye exam: PRESENT: conjunctiva pink, EOMI, PERRLA. ABSENT: scleral icterus Ear exam: PRESENT: normal external ear exam Mouth exam: PRESENT: moist, tongue midline Neck exam: ABSENT: carotid bruit, JVD, lymphadenopathy, thyromegaly Respiratory exam: PRESENT: clear to auscultation kristopher, unlabored. ABSENT: rales, rhonchi, wheezes Cardiovascular exam: PRESENT: bradycardia, +S1, +S2. ABSENT: diastolic murmur, rubs, systolic murmur Pulses: PRESENT: normal dorsalis pedis pul Vascular exam: PRESENT: normal capillary refill GI/Abdominal exam: PRESENT: normal bowel sounds, soft. ABSENT: distended, guarding, mass, organolmegaly, rebound, tenderness Rectal exam: PRESENT: deferred Extremities exam: PRESENT: full ROM. ABSENT: calf tenderness, clubbing, pedal edema Neurological exam: PRESENT: alert, awake, oriented to person, oriented to place, oriented to time, oriented to situation, CN II-XII grossly intact. ABSENT: motor sensory deficit Psychiatric exam: PRESENT: appropriate affect, normal mood. ABSENT: homicidal ideation, suicidal ideation Skin exam: PRESENT: dry, intact, warm. ABSENT: cyanosis, rash Results Laboratory Results: 06/02/19 04:46 06/02/19 04:46 06/02/19 06/02/19 04:46 04:46 WBC 10.6 H RBC 3.87 L Hgb 12.0 L Hct 36.0 L MCV 93 MCH 31.0 MCHC 33.3 RDW 14.7 H Plt Count 170 Seg Neutrophils % 69.2 Lymphocytes % 19.3 Monocytes % 6.8 Eosinophils % 4.2 Basophils % 0.5 Absolute Neutrophils 7.3 Absolute Lymphocytes 2.0 Absolute Monocytes 0.7 Absolute Eosinophils 0.4 Absolute Basophils 0.1 Sodium 141.1 Potassium 4.2 Chloride 106 Carbon Dioxide 27 Anion Gap 8 BUN 21 H Creatinine 0.66 Est GFR ( Amer) > 60 Est GFR (Non-Af Amer) > 60 Glucose 87 Calcium 8.7 Magnesium 2.1 Total Bilirubin 0.4 AST 20 ALT 15 L Alkaline Phosphatase 94 Total Protein 6.4 Albumin 3.4 L 05/29/19 05/29/19 05/29/19 17:51 17:51 17:51 Creatine Kinase 29 L CK-MB (CK-2) 0.58 Troponin I < 0.012 NT-Pro-B Natriuret Pep 395 05/29/19 05/30/19 05/30/19 20:45 03:09 09:03 Creatine Kinase CK-MB (CK-2) Troponin I < 0.012 0.083 0.074 NT-Pro-B Natriuret Pep Impressions: Chest X-Ray 05/29/19 17:54 IMPRESSION: No consolidation or pleural effusion. Emphysema and left basilar scarring. Cervical Spine CT 05/29/19 18:10 IMPRESSION: CHRONIC DEGENERATIVE CHANGES. NO ACUTE FINDINGS. Head CT 05/29/19 18:10 IMPRESSION: POSSIBLE SMALL 8 MM FOCUS OF RIGHT FRONTAL CONVEXITY EXTRA-AXIAL HEMORRHAGE. NO CALVARIAL FRACTURE OR OTHER ACUTE INTRA CRANIAL FINDINGS. ACUTE RIGHT MAXILLARY AND LEFT SPHENOID SINUSITIS. Carotid Doppler Study 05/30/19 00:00 IMPRESSION: NO HEMODYNAMICALLY SIGNIFICANT STENOSIS. Assessment and Plan - Diagnosis (1) Atrial fibrillation with RVR Is this a current diagnosis for this admission?: Yes Plan: monitor to keep out of AFib, and then we can move towards d/c. last episode 05/31 -Digoxin 0.125 mg daily -cardizem 30mg q8h daily. hold if symptomatic. notify provider -Lopressor 5 mg x 1 IV given 05/31 to break afib/flutter alone with 0.25mg iv digoxin -Chads vas score of 1. Continue aspirin -Patient remains asymptomatic. He does have a history of sinus bradycardia that we have to be conscious of. 06-02-19 only able to tolerate about 1/2 the doses of dig and cardizem as HR is too low to give. Needs EP, but one not available. will discuss with md. -no recent episodes of afib/flutter (2) COPD (chronic obstructive pulmonary disease) Qualifiers: COPD type: unspecified COPD Qualified Code(s): J44.9 - Chronic obstructive pulmonary disease, unspecified Is this a current diagnosis for this admission?: Yes Plan: Stable. Monitor (3) Near syncope Is this a current diagnosis for this admission?: Yes Plan: On admission. Orthostatic hypotension. possibly related to afib. no episodes at rest. occurs when up and walking to bathroom. Monitor. - Time Time Spent with patient: 15-24 minutes Medications reviewed and adjusted accordingly: Yes - Inpatient Certification Based on my medical assessment, after consideration of the patient's comorbidities, presenting symptoms, or acuity I expect that the services needed warrant INPATIENT care.: Yes I certify that my determination is in accordance with my understanding of Medicare's requirements for reasonable and necessary INPATIENT services [42 CFR 412.3e].: Yes - Plan Summary Plan Summary: need to make sure he is safe for d/c. he does not seem to tolerate rate/rhythm controlling meds. may need to see EP.
[2019-06-03] MEDS: HEPARIN SOD (PORCINE) 5,000 UNIT/ML 1 ML SYRINGE SUBCUT SCH ×3 (05:57→22:45)
[2019-06-03] MEDS: DILTIAZEM HCL 30 MG TABLET PO SCH (05:57)
[2019-06-03 07:15] LABS: ABSOLUTE BASOPHILS # (AUTO) 0.1 10^3/uL (0.0-0.2); ABSOLUTE EOSINOPHILS # (AUTO) 0.6 10^3/uL (0.0-0.6); ABSOLUTE LYMPHOCYTES (AUTO) 1.8 10^3/uL (0.5-4.7); ABSOLUTE MONOCYTES (AUTO) 0.7 10^3/uL (0.1-1.4); ABSOLUTE NEUT (AUTO) 5.8 10^3/uL (1.7-8.2); BASOPHILS % (AUTO) 0.7 % (0-2); EOSINOPHILS % (AUTO) 6.9 % (0-6); HEMATOCRIT 37.7 % (37.9-51.0); HEMOGLOBIN 12.5 g/dL (13.5-17.0); LYMPHOCYTES % (AUTO) 19.9 % (13-45); MEAN CORPUSCULAR HEMOGLOBIN 30.6 pg (27.0-33.4); MEAN CORPUSCULAR HGB CONC 33.1 g/dL (32.0-36.0); MEAN CORPUSCULAR VOLUME 93 fl (80-97); MONOCYTES % (AUTO) 8.3 % (3-13); PLATELET COUNT 203 10^3/uL (150-450); RED BLOOD COUNT 4.08 10^6/uL (4.35-5.55); RED CELL DISTRIBUTION WIDTH 14.5 % (11.5-14.0); SEGMENTED NEUTROPHILS % (AUTO) 64.2 % (42-78); TOTAL CELLS COUNTED % (AUTO) 100 %
[2019-06-03 07:38] LABS: ANION GAP 9 (5-19); BLOOD UREA NITROGEN 26 mg/dL (7-20); CARBON DIOXIDE 26 mmol/L (22-30); CHLORIDE 104 mmol/L (98-107); DIGOXIN 0.92 ng/mL (0.8-2.0); GLUCOSE 89 mg/dL (75-110); POTASSIUM 4.7 mmol/L (3.6-5.0); SODIUM 138.5 mmol/L (137-145)
[2019-06-03] MEDS: ASPIRIN 81 MG TABLET, CHEWABLE PO SCH (10:16)
[2019-06-03] MEDS: DIGOXIN 0.125 MG TABLET PO SCH (10:16)
[2019-06-03] MEDS: DOCUSATE SODIUM 100 MG CAPSULE PO SCH ×2 (10:16→17:45)
--- NOTE | 2019-06-03 16:21 | PDOC PROGRESS REPORT ---
<DIEGO TRAN - Last Filed: 06/03/19 16:16> Subjective Progress Note for:: 06/03/19 Subjective:: cardizem stopped. Hr staying in 50-60s. remains symptomatic when getting out of bed and moving around. may need to discuss EP. Reason For Visit: PRESYNCOPE AFIB Physical Exam Vital Signs: Temp Pulse Resp BP Pulse Ox 98.2 F 57 L 18 114/54 L 95 06/03/19 11:11 06/03/19 11:11 06/03/19 11:11 06/03/19 11:11 06/03/19 11:11 Intake & Output 06/02/19 06/03/19 06/04/19 06:59 06:59 06:59 Intake Total 1139 1379 360 Output Total 825 925 600 Balance 314 454 -240 Weight 49 kg 47.1 kg General appearance: PRESENT: no acute distress, hard of hearing, thin Head exam: PRESENT: atraumatic, normocephalic Eye exam: PRESENT: conjunctiva pink, EOMI, PERRLA. ABSENT: scleral icterus Ear exam: PRESENT: normal external ear exam Mouth exam: PRESENT: moist, tongue midline Neck exam: ABSENT: carotid bruit, JVD, lymphadenopathy, thyromegaly Respiratory exam: PRESENT: clear to auscultation kristopher, unlabored. ABSENT: rales, rhonchi, wheezes Cardiovascular exam: PRESENT: RRR, +S1, +S2. ABSENT: diastolic murmur, rubs, systolic murmur Pulses: PRESENT: normal dorsalis pedis pul Vascular exam: PRESENT: normal capillary refill GI/Abdominal exam: PRESENT: normal bowel sounds, soft. ABSENT: distended, guarding, mass, organolmegaly, rebound, tenderness Rectal exam: PRESENT: deferred Extremities exam: PRESENT: full ROM. ABSENT: calf tenderness, clubbing, pedal edema Neurological exam: PRESENT: alert, awake, oriented to person, oriented to place, oriented to time, oriented to situation, CN II-XII grossly intact. ABSENT: motor sensory deficit Psychiatric exam: PRESENT: appropriate affect, normal mood. ABSENT: homicidal ideation, suicidal ideation Skin exam: PRESENT: dry, intact, warm. ABSENT: cyanosis, rash Results Laboratory Results: 06/03/19 06:36 06/03/19 06:36 06/03/19 06/03/19 06:36 06:36 WBC 9.0 RBC 4.08 L Hgb 12.5 L Hct 37.7 L MCV 93 MCH 30.6 MCHC 33.1 RDW 14.5 H Plt Count 203 Seg Neutrophils % 64.2 Lymphocytes % 19.9 Monocytes % 8.3 Eosinophils % 6.9 H Basophils % 0.7 Absolute Neutrophils 5.8 Absolute Lymphocytes 1.8 Absolute Monocytes 0.7 Absolute Eosinophils 0.6 Absolute Basophils 0.1 Sodium 138.5 Potassium 4.7 Chloride 104 Carbon Dioxide 26 Anion Gap 9 BUN 26 H Creatinine 0.82 Est GFR ( Amer) > 60 Est GFR (Non-Af Amer) > 60 Glucose 89 Calcium 9.0 Magnesium 2.2 05/29/19 05/29/19 05/29/19 17:51 17:51 17:51 Creatine Kinase 29 L CK-MB (CK-2) 0.58 Troponin I < 0.012 NT-Pro-B Natriuret Pep 395 05/29/19 05/30/19 05/30/19 20:45 03:09 09:03 Creatine Kinase CK-MB (CK-2) Troponin I < 0.012 0.083 0.074 NT-Pro-B Natriuret Pep Impressions: Chest X-Ray 05/29/19 17:54 IMPRESSION: No consolidation or pleural effusion. Emphysema and left basilar scarring. Cervical Spine CT 05/29/19 18:10 IMPRESSION: CHRONIC DEGENERATIVE CHANGES. NO ACUTE FINDINGS. Head CT 05/29/19 18:10 IMPRESSION: POSSIBLE SMALL 8 MM FOCUS OF RIGHT FRONTAL CONVEXITY EXTRA-AXIAL HEMORRHAGE. NO CALVARIAL FRACTURE OR OTHER ACUTE INTRA CRANIAL FINDINGS. ACUTE RIGHT MAXILLARY AND LEFT SPHENOID SINUSITIS. Carotid Doppler Study 05/30/19 00:00 IMPRESSION: NO HEMODYNAMICALLY SIGNIFICANT STENOSIS. Assessment and Plan - Diagnosis (1) Atrial fibrillation with RVR Is this a current diagnosis for this admission?: Yes Plan: monitor to keep out of AFib, and then we can move towards d/c. last episode 05/3106-01-19 -Digoxin 0.125 mg daily -cardizem 30mg q8h daily. hold if symptomatic. notify provider -Lopressor 5 mg x 1 IV given 05/31 to break afib/flutter alone with 0.25mg iv digoxin -Chads vas score of 1. Continue aspirin -Patient remains asymptomatic. He does have a history of sinus bradycardia that we have to be conscious of. 06-02-19 only able to tolerate about 1/2 the doses of dig and cardizem as HR is too low to give. Needs EP, but one not available. will discuss with md. -no recent episodes of afib/flutter 06-03-19 -HR staying in 50-60s since cardizem stopped -continue digoxin -consider cardiology consult (2) COPD (chronic obstructive pulmonary disease) Qualifiers: COPD type: unspecified COPD Qualified Code(s): J44.9 - Chronic obstructive pulmonary disease, unspecified Is this a current diagnosis for this admission?: Yes (3) Near syncope Is this a current diagnosis for this admission?: Yes Plan: continues to occurr. originally thought to be related to AFIB/FLUTTER. it may be related to bradycardia as well. given another liter of fluids. no history of CHF. get echo - Time Time Spent with patient: 15-24 minutes Medications reviewed and adjusted accordingly: Yes Anticipated discharge: Other - [facility] or rehab - Inpatient Certification Based on my medical assessment, after consideration of the patient's comorbidities, presenting symptoms, or acuity I expect that the services needed warrant INPATIENT care.: Yes I certify that my determination is in accordance with my understanding of Medicare's requirements for reasonable and necessary INPATIENT services [42 CFR 412.3e].: Yes - Plan Summary Plan Summary: need to control HR for safe d/c. <FATUMA WILKINS - Last Filed: 06/05/19 18:36> Subjective Reason For Visit: PRESYNCOPE AFIB Physical Exam Vital Signs: Temp Pulse Resp BP Pulse Ox 97.7 F 54 L 20 114/61 95 06/05/19 12:35 06/05/19 14:00 06/05/19 12:35 06/05/19 12:35 06/05/19 12:35 Intake & Output 06/04/19 06/05/19 06/06/19 06:59 06:59 06:59 Intake Total 360 710 Output Total 1550 1400 Balance -1190 -690 Weight 54.1 kg 54.2 kg Results Laboratory Results: 06/03/19 06:36 06/03/19 06:36 05/29/19 05/29/19 05/29/19 17:51 17:51 17:51 Creatine Kinase 29 L CK-MB (CK-2) 0.58 Troponin I < 0.012 NT-Pro-B Natriuret Pep 395 05/29/19 05/30/19 05/30/19 20:45 03:09 09:03 Creatine Kinase CK-MB (CK-2) Troponin I < 0.012 0.083 0.074 NT-Pro-B Natriuret Pep Impressions: Chest X-Ray 05/29/19 17:54 IMPRESSION: No consolidation or pleural effusion. Emphysema and left basilar scarring. Cervical Spine CT 05/29/19 18:10 IMPRESSION: CHRONIC DEGENERATIVE CHANGES. NO ACUTE FINDINGS. Head CT 05/29/19 18:10 IMPRESSION: POSSIBLE SMALL 8 MM FOCUS OF RIGHT FRONTAL CONVEXITY EXTRA-AXIAL HEMORRHAGE. NO CALVARIAL FRACTURE OR OTHER ACUTE INTRA CRANIAL FINDINGS. ACUTE RIGHT MAXILLARY AND LEFT SPHENOID SINUSITIS. Carotid Doppler Study 05/30/19 00:00 IMPRESSION: NO HEMODYNAMICALLY SIGNIFICANT STENOSIS. Assessment and Plan - Diagnosis (1) Atrial fibrillation with RVR Is this a current diagnosis for this admission?: Yes (2) COPD (chronic obstructive pulmonary disease) Qualifiers: COPD type: unspecified COPD Qualified Code(s): J44.9 - Chronic obstructive pulmonary disease, unspecified Is this a current diagnosis for this admission?: Yes (3) Near syncope Is this a current diagnosis for this admission?: Yes
[2019-06-04] MEDS: HEPARIN SOD (PORCINE) 5,000 UNIT/ML 1 ML SYRINGE SUBCUT SCH ×3 (05:46→22:00)
[2019-06-04] MEDS: DOCUSATE SODIUM 100 MG CAPSULE PO SCH ×2 (11:57→18:01)
[2019-06-04] MEDS: DIGOXIN 0.125 MG TABLET PO SCH (11:57)
[2019-06-04] MEDS: ASPIRIN 81 MG TABLET, CHEWABLE PO SCH (11:58)
--- NOTE | 2019-06-04 16:21 | PDOC PROGRESS REPORT ---
Subjective Progress Note for:: 06/04/19 Subjective:: Patient not able to tell me where he is. He does know his name. He does not know why he is in the hospital. Says he feels well, eating fine. No pain. No fever. No nausea vomiting. Is breathing fine. Reason For Visit: PRESYNCOPE AFIB Physical Exam Vital Signs: Temp Pulse Resp BP Pulse Ox 97.6 F 57 L 16 117/61 95 06/04/19 11:44 06/04/19 14:00 06/04/19 11:44 06/04/19 11:44 06/04/19 11:44 Intake & Output 06/03/19 06/04/19 06/05/19 06:59 06:59 06:59 Intake Total 1379 360 Output Total 925 1550 Balance 454 -1190 Weight 47.1 kg 54.1 kg General appearance: PRESENT: no acute distress, cooperative, disheveled, thin Head exam: PRESENT: atraumatic, normocephalic, other - bitemporal wasting Eye exam: PRESENT: conjunctiva pink. ABSENT: scleral icterus Ear exam: PRESENT: normal external ear exam Mouth exam: PRESENT: neck supple Respiratory exam: PRESENT: clear to auscultation kristopher, unlabored. ABSENT: rales, rhonchi Cardiovascular exam: PRESENT: RRR. ABSENT: systolic murmur Pulses: PRESENT: normal radial pulses GI/Abdominal exam: PRESENT: normal bowel sounds, soft. ABSENT: distended, firm, guarding, tenderness Rectal exam: PRESENT: deferred Extremities exam: ABSENT: pedal edema Neurological exam: PRESENT: alert, awake, oriented to person. ABSENT: oriented to place, oriented to situation Psychiatric exam: ABSENT: agitated, anxious, flat affect Skin exam: PRESENT: dry, warm Results Laboratory Results: 06/03/19 06:36 06/03/19 06:36 05/29/19 05/29/19 05/29/19 17:51 17:51 17:51 Creatine Kinase 29 L CK-MB (CK-2) 0.58 Troponin I < 0.012 NT-Pro-B Natriuret Pep 395 05/29/19 05/30/19 05/30/19 20:45 03:09 09:03 Creatine Kinase CK-MB (CK-2) Troponin I < 0.012 0.083 0.074 NT-Pro-B Natriuret Pep Impressions: Chest X-Ray 05/29/19 17:54 IMPRESSION: No consolidation or pleural effusion. Emphysema and left basilar scarring. Cervical Spine CT 05/29/19 18:10 IMPRESSION: CHRONIC DEGENERATIVE CHANGES. NO ACUTE FINDINGS. Head CT 05/29/19 18:10 IMPRESSION: POSSIBLE SMALL 8 MM FOCUS OF RIGHT FRONTAL CONVEXITY EXTRA-AXIAL HEMORRHAGE. NO CALVARIAL FRACTURE OR OTHER ACUTE INTRA CRANIAL FINDINGS. ACUTE RIGHT MAXILLARY AND LEFT SPHENOID SINUSITIS. Carotid Doppler Study 05/30/19 00:00 IMPRESSION: NO HEMODYNAMICALLY SIGNIFICANT STENOSIS. Assessment and Plan - Diagnosis (1) Atrial fibrillation with RVR Is this a current diagnosis for this admission?: Yes Plan: Was not able to tolerate rate control with diltiazem and that was discontinued. He is now bradycardic and in sinus rhythm, on digoxin. We are following closely. He is asymptomatic as far as I can tell. I have ordered orthostatic vitals every morning. (2) COPD (chronic obstructive pulmonary disease) Qualifiers: COPD type: unspecified COPD Qualified Code(s): J44.9 - Chronic obstructive pulmonary disease, unspecified Is this a current diagnosis for this admission?: Yes Plan: stable, continue duo nebs the lungs are clear (3) Near syncope Is this a current diagnosis for this admission?: Yes Plan: Probably related to an episode of A. fib at his home. Is now back to his spine bradycardic state. We will continue to monitor given the difficulty and knowing whether his description of his symptoms is accurate, given his underlying comorbidities. Once we feel he is stable we will consider disc charge back to the [facility]. - Time Time Spent with patient: 25-34 minutes - Inpatient Certification Based on my medical assessment, after consideration of the patient's comorbidities, presenting symptoms, or acuity I expect that the services needed warrant INPATIENT care.: Yes I certify that my determination is in accordance with my understanding of Medicare's requirements for reasonable and necessary INPATIENT services [42 CFR 412.3e].: Yes Medical Necessity: Significant Comorbidiites Make Outpatient Treatment Too Risky, Need Close Monitoring Due to Risk of Patient Decompensation
[2019-06-05] MEDS: HEPARIN SOD (PORCINE) 5,000 UNIT/ML 1 ML SYRINGE SUBCUT SCH ×3 (06:25→21:02)
[2019-06-05] MEDS: ASPIRIN 81 MG TABLET, CHEWABLE PO SCH (09:46)
[2019-06-05] MEDS: DIGOXIN 0.125 MG TABLET PO SCH (09:46)
[2019-06-05] MEDS: DOCUSATE SODIUM 100 MG CAPSULE PO SCH ×2 (09:46→17:17)
--- NOTE | 2019-06-05 18:36 | PDOC PROGRESS REPORT ---
Subjective Progress Note for:: 06/05/19 Subjective:: Patient tells me he is doing fine today. He just wants to take a nap and people keep bothering him. He does not know where he is or why he is here. He thinks he is eating and drinking well. No fevers or acute pain as far as he can tell. He is breathing okay. Since I do not know how accurate this information really is given his comorbidities I spoke with his nurse who does not have any concerns at this time. Reason For Visit: PRESYNCOPE AFIB Physical Exam Vital Signs: Temp Pulse Resp BP Pulse Ox 97.7 F 54 L 20 114/61 95 06/05/19 12:35 06/05/19 14:00 06/05/19 12:35 06/05/19 12:35 06/05/19 12:35 Intake & Output 06/04/19 06/05/19 06/06/19 06:59 06:59 06:59 Intake Total 360 710 Output Total 1550 1400 Balance -1190 -690 Weight 54.1 kg 54.2 kg General appearance: PRESENT: no acute distress, disheveled, hard of hearing Head exam: PRESENT: atraumatic, normocephalic, other - Significant bitemporal wasting Eye exam: ABSENT: conjunctival injection, scleral icterus Mouth exam: PRESENT: moist, tongue midline Respiratory exam: PRESENT: clear to auscultation kristopher, unlabored. ABSENT: rales, rhonchi, wheezes Pulses: PRESENT: normal radial pulses GI/Abdominal exam: PRESENT: normal bowel sounds, soft. ABSENT: distended, tenderness Rectal exam: PRESENT: deferred Extremities exam: ABSENT: calf tenderness, pedal edema Neurological exam: PRESENT: awake, oriented to person. ABSENT: oriented to place, oriented to situation, normal gait Skin exam: PRESENT: dry, intact, warm Results Laboratory Results: 06/03/19 06:36 06/03/19 06:36 05/29/19 05/29/19 05/29/19 17:51 17:51 17:51 Creatine Kinase 29 L CK-MB (CK-2) 0.58 Troponin I < 0.012 NT-Pro-B Natriuret Pep 395 05/29/19 05/30/19 05/30/19 20:45 03:09 09:03 Creatine Kinase CK-MB (CK-2) Troponin I < 0.012 0.083 0.074 NT-Pro-B Natriuret Pep Impressions: Chest X-Ray 05/29/19 17:54 IMPRESSION: No consolidation or pleural effusion. Emphysema and left basilar scarring. Cervical Spine CT 05/29/19 18:10 IMPRESSION: CHRONIC DEGENERATIVE CHANGES. NO ACUTE FINDINGS. Head CT 05/29/19 18:10 IMPRESSION: POSSIBLE SMALL 8 MM FOCUS OF RIGHT FRONTAL CONVEXITY EXTRA-AXIAL HEMORRHAGE. NO CALVARIAL FRACTURE OR OTHER ACUTE INTRA CRANIAL FINDINGS. ACUTE RIGHT MAXILLARY AND LEFT SPHENOID SINUSITIS. Carotid Doppler Study 05/30/19 00:00 IMPRESSION: NO HEMODYNAMICALLY SIGNIFICANT STENOSIS. Assessment and Plan - Diagnosis (1) Atrial fibrillation with RVR Is this a current diagnosis for this admission?: Yes Plan: monitor to keep out of AFib, and then we can move towards d/c possibly Thursday. last episode 05/3106-01-19 -Digoxin 0.125 mg daily -cardizem 30mg q8h daily. hold if symptomatic. notify provider -Lopressor 5 mg x 1 IV given 05/31 to break afib/flutter alone with 0.25mg iv digoxin -Chads vas score of 1. Continue aspirin -Patient remains asymptomatic. He does have a history of sinus bradycardia that we have to be conscious of. 06-02-19 only able to tolerate about 1/2 the doses of dig and cardizem as HR is too low to give. Needs EP, but one not available. will discuss with md. -no recent episodes of afib/flutter 06-03-19 -HR staying in 50-60s since cardizem stopped -continue digoxin -consider cardiology consult 06/04 and -no changes made, HR is 50s and BP under good control. Consider cards consult prior to DC, echocardiogram is pending also. (2) COPD (chronic obstructive pulmonary disease) Qualifiers: COPD type: unspecified COPD Qualified Code(s): J44.9 - Chronic obstructive pulmonary disease, unspecified Is this a current diagnosis for this admission?: Yes Plan: stable, no changes today (3) Near syncope Is this a current diagnosis for this admission?: Yes Plan: Not entirely clear etiology though as Americo Lundberg stated could be related to arrhythmia versus bradycardia. Echocardiogram is pending. Depending on those results we can talk to cardiology prior to discharge. In the meantime we will do our best to get the patient up as much as we can supervised to see how he is doing in terms of the syncope, prior to discharge home him a physical therapy consult ordered. Does not appear to be orthostatic. - Time Time Spent with patient: 15-24 minutes - Inpatient Certification Based on my medical assessment, after consideration of the patient's comorbidities, presenting symptoms, or acuity I expect that the services needed warrant INPATIENT care.: Yes I certify that my determination is in accordance with my understanding of Medicare's requirements for reasonable and necessary INPATIENT services [42 CFR 412.3e].: Yes Medical Necessity: Significant Comorbidiites Make Outpatient Treatment Too Risky, Need Close Monitoring Due to Risk of Patient Decompensation
[2019-06-06] MEDS: HEPARIN SOD (PORCINE) 5,000 UNIT/ML 1 ML SYRINGE SUBCUT SCH ×2 (05:04→15:37)
[2019-06-06] MEDS: DOCUSATE SODIUM 100 MG CAPSULE PO SCH (12:29)
[2019-06-06] MEDS: DIGOXIN 0.125 MG TABLET PO SCH (12:29)
[2019-06-06] MEDS: ASPIRIN 81 MG TABLET, CHEWABLE PO SCH (12:29)
[2019-06-06 13:31] VITALS: BP 134/60
--- NOTE | 2019-06-06 16:02 | PDOC TRANSFER SUMMARY ---
General - Admit/Disc Date/PCP Admission Date/Primary Care Provider: 05/29/19 20:54 Discharge Date: 06/06/19 - Discharge Diagnosis (1) Atrial fibrillation with RVR Is this a current diagnosis for this admission?: Yes Summary: Resolved. Patient was initially placed on a diltiazem drip. Patient was quite sensitive to diltiazem and so dosing was rapidly reduced. Ultimately, he converted to NSR and remains rate controlled on p.o. digoxin only. Patient may benefit from cardiology follow up for consideration of event monitoring and/or EP study. CHADS Vasc Score of 1; therefore no indication for chronic anticoagulation at this time. Recommend continued daily ASA therapy. At time of dictation; formal echocardiogram report is pending. Preliminary report is reassuring. (2) COPD (chronic obstructive pulmonary disease) Is this a current diagnosis for this admission?: Yes Summary: Stable and without exacerbation. (3) Hard of hearing Is this a current diagnosis for this admission?: Yes Summary: Chronic; supportive care. (4) Near syncope Is this a current diagnosis for this admission?: Yes Summary: Resolved. Likely secondary to A. fib RVR and orthostatic blood pressures. Patient was independently ambulatory 250' today with front wheel walker. He denies symptoms of dizziness. Blood pressures do remain mildly orthostatic; therefore have started on low dose midodrine. Recommend outpatient cardiology follow up. (5) Orthostatic dizziness Is this a current diagnosis for this admission?: Yes Summary: Initially treated with IVF; patient now with adequate p.o. intake. HR was very sensitive to diltiazem for treatment of afib RVR; therefore has been discontinued. Now in NSR and rate controlled on digoxin only. Blood pressures remain mildly orthostatic; have started on low dose midodrine. Recommend outpatient cardiology follow up. - Additional Information Resuscitation Status: Full Code Discharge Diet: Cardiac Discharge Activity: Activity As Tolerated, Balance Activity w/Rest, Slowly Increase Activity Prescriptions: Digoxin [Lanoxin 0.125 mg Tablet] 0.125 mg PO DAILY #30 tablet Midodrine HCl [Proamatine 5 mg Tablet] 2.5 mg PO TID #30 tablet Home Medications: Aspirin [Aspirin 81 mg Chewable Tablet] 81 mg PO DAILY 05/29/19 Acetaminophen [Tylenol 325 mg Tablet] 650 mg PO Q4HP PRN tablet 06/06/19 Digoxin [Lanoxin 0.125 mg Tablet] 0.125 mg PO DAILY #30 tablet 06/06/19 Docusate Sodium [Colace 100 mg Capsule] 100 mg PO BID capsule 06/06/19 Midodrine HCl [Proamatine 5 mg Tablet] 2.5 mg PO TID #30 tablet 06/06/19 History of Present Illness Admission Date/PCP: 05/29/19 20:54 History of Present Illness: Per H&P by Dr. Sales: JOE DIXON is a 73 year old male resident of the [facility], with a past medical history of dementia, COPD, sinus bradycardia and deafness. He presents 1 hour after a near syncopal event occurring while [place] with his walker feeling lightheaded he lowered himself to the ground with palpitations without chest pain nausea vomiting or loss of consciousness in the emergency room is found to be in a flutter with a heart rate in the 150s he receives IV Cardizem x1 resulting in sinus bradycardia and is referred to the hospitalist for admission. Patient is a poor historian he is unaware of recent change of medications and he otherwise feels well. Physical Exam Vital Signs: Temp Pulse Resp BP Pulse Ox 97.2 F 76 15 134/60 H 97 06/06/19 11:43 06/06/19 11:43 06/06/19 11:43 06/06/19 11:43 06/06/19 11:43 Intake & Output 06/05/19 06/06/19 06/07/19 06:59 06:59 06:59 Intake Total 710 979 Output Total 1400 825 Balance -690 154 Weight 54.2 kg 52.4 kg General appearance: PRESENT: no acute distress, cooperative, disheveled - poor oral/body ordor, hard of hearing, well-developed, other - cachectic Head exam: PRESENT: atraumatic, normocephalic Eye exam: PRESENT: conjunctiva pink, EOMI, PERRLA. ABSENT: scleral icterus Mouth exam: PRESENT: moist, tongue midline Neck exam: ABSENT: carotid bruit, JVD, lymphadenopathy, thyromegaly Respiratory exam: PRESENT: clear to auscultation kristopher, symmetrical, unlabored. ABSENT: rales, rhonchi, wheezes Cardiovascular exam: PRESENT: RRR, +S1, +S2. ABSENT: diastolic murmur, rubs, systolic murmur Pulses: PRESENT: normal dorsalis pedis pul Vascular exam: PRESENT: normal capillary refill GI/Abdominal exam: PRESENT: normal bowel sounds, soft. ABSENT: distended, guarding, mass, organolmegaly, rebound, tenderness Rectal exam: PRESENT: deferred Extremities exam: PRESENT: full ROM. ABSENT: calf tenderness, clubbing, pedal edema Musculoskeletal exam: PRESENT: ambulatory - 250' w/ front wheel walker Neurological exam: PRESENT: alert, awake, oriented to person, CN II-XII grossly intact. ABSENT: motor sensory deficit Psychiatric exam: PRESENT: appropriate affect, normal mood. ABSENT: homicidal ideation, suicidal ideation Skin exam: PRESENT: dry, intact, warm. ABSENT: cyanosis, rash Results Laboratory Results: 06/03/19 06:36 06/03/19 06:36 05/29/19 05/29/19 05/29/19 17:51 17:51 17:51 Creatine Kinase 29 L CK-MB (CK-2) 0.58 Troponin I < 0.012 NT-Pro-B Natriuret Pep 395 05/29/19 05/30/19 05/30/19 20:45 03:09 09:03 Creatine Kinase CK-MB (CK-2) Troponin I < 0.012 0.083 0.074 NT-Pro-B Natriuret Pep Impressions: Chest X-Ray 05/29/19 17:54 IMPRESSION: No consolidation or pleural effusion. Emphysema and left basilar scarring. Cervical Spine CT 05/29/19 18:10 IMPRESSION: CHRONIC DEGENERATIVE CHANGES. NO ACUTE FINDINGS. Head CT 05/29/19 18:10 IMPRESSION: POSSIBLE SMALL 8 MM FOCUS OF RIGHT FRONTAL CONVEXITY EXTRA-AXIAL HEMORRHAGE. NO CALVARIAL FRACTURE OR OTHER ACUTE INTRA CRANIAL FINDINGS. ACUTE RIGHT MAXILLARY AND LEFT SPHENOID SINUSITIS. Carotid Doppler Study 05/30/19 00:00 IMPRESSION: NO HEMODYNAMICALLY SIGNIFICANT STENOSIS. Transfer Plan - Disposition Transfer Plan: Discharge to [facility]) where patient is an established resident. - Time Spent with Patient Time spent with patient: Less than 30 Minutes Qualifiers - * PATIENT BEING DISCHARGED WITH ANY OF THE FOLLOWING DIAGNOSIS: No Acute Heart Failure - Is this a Heart Failure Patient?: No Plan Discharge Plan: Discharge to [facility]) where patient is an established resident. Take medications as prescribed. Consider appetite stimulant (Megace, Remeron) and recommend Boost or Ensure with each meal. Change positions slowly. Recommend outpatient cardiology follow up within 2-4 weeks; sooner as needed. Return to the emergency department as needed for concerning symptoms. Time Spent: Greater than 30 Minutes
[2019-06-06] MEDS ORDERED: MIDODRINE HCL 5 MG TABLET PO SCH (18:00)
== END 2019-06-06 17:55 | disposition home health service (06) | DRG 310 ==
LOC: ER 17:44 → OBSVTOIN 20:54 → EH 20:54 → 5 20:55 → 3S 05-30 00:39 → 5 05-31 10:49
PROVIDERS: ADMIT Internal Medicine; ATTEND Internal Medicine
DX: I48.91 Unspecified atrial fibrillation (principal); I48.92 Unspecified atrial flutter; J44.9 Chronic obstructive pulmonary disease, unspecified; F03.90 Unspecified dementia, unspecified severity, without behavioral disturbance, psychotic disturbance, mood disturbance, and anxiety; H91.93 Unspecified hearing loss, bilateral; R55 Syncope and collapse; F17.210 Nicotine dependence, cigarettes, uncomplicated
CPT/HCPCS: 36415; 70450; 71045; 72125; 80048; 80053; 80162; 82550; 82553; 83735; 83880; 84439; 84443; 84481; 84484; 85025; 85379; 85610; 93005; 93010; 93306; 93880; 96361; 96374; 99285; 99406; G0378; J1160; J1644; J3490; J7030; J7040